=== PATIENT | male | born 1990 | race Caucasian/White ===

== ENCOUNTER 2016-07-21 03:38 | Emergency (ER) | payer OTHER ==
[~2016-07-21] VITALS: Ht 160 cm; Wt 86.0 kg
[2016-07-21 03:42] VITALS: Ht 160 cm; Wt 86.0 kg
--- NOTE | 2016-07-21 04:20 | ERA ---
ER Documentation Chief Complaint Date/Time DATE: 07/21/16 TIME: 04:20 Chief Complaint vomiting/diarrhea since 2300 HPI The patient is 25-year-old male, presenting to the ER because of vomiting and diarrhea that began about 11 PM. He denies any hematemesis or hematochezia. He denies any abdominal pain, fever, chills, neck pain, chest pain, dyspnea, dysuria. He does not smoke, drink or use illegal drug Past medical history: Neurofibromatosis Past surgical history: None ROS All systems reviewed and are negative except as per history of present illness. Medications Home Meds Active Scripts Omeprazole* (Omeprazole*) 40 Mg Capsule.dr, 40 MG PO DAILY, #10 CAP Prov:CAL KUHN MD 07/21/16 Ondansetron (Ondansetron Odt) 4 Mg Tab.rapdis, 4 MG PO Q6H Y for NAUSEA AND/OR VOMITING, #10 TAB Prov:CAL KUHN MD 07/21/16 Reported Medications Calcium Carbonate/Vitamin D2 (Calcium Oys Shell 250 mg Tab) 1 Each Tablet, 1 EACH PO, TAB 07/21/16 Glucosamine Hcl/Chondr Sherman A Na (GLUCOSAMINE-CHONDROITIN CAP) Unknown Strength Capsule, 1 EACH PO, CAP 07/21/16 Allergies Allergies: Coded Allergies: Penicillins (Verified Allergy, Unknown, rash, 07/21/16) Physical Exam Vitals Vital Signs Date Time Temp Pulse Resp B/P Pulse Ox O2 Delivery O2 Flow Rate FiO2 07/21/16 03:42 98.4 109 20 139/70 100 Physical Exam Const: No acute distress. Head: Atraumatic. Eyes: Normal Conjunctiva. ENT: Normal External Ears, Nose and Mouth. Neck: Full range of motion. No meningismus. Resp: Clear to auscultation bilaterally. Cardio: Regular rate and rhythm, no murmurs. Abd: Soft, non distended, normal bowel sounds, non tender. No right lower quadrant, right upper quadrant, epigastric, CVA tenderness Skin: No petechiae or rashes. Back: No midline or flank tenderness. Ext: No cyanosis, or edema. Neur: Awake and alert. No focal deficit Psych: Normal Mood and Affect. Result Diagram: 07/21/1641907/21/16419 Results 24 hrs Laboratory Tests Test 07/21/16 04:20 07/21/16 05:20 White Blood Count 23.310^3/ul Red Blood Count 5.9010^6/ul Hemoglobin 18.2g/dl Hematocrit 51.0% Mean Corpuscular Volume 86.4fl Mean Corpuscular Hemoglobin 30.8pg Mean Corpuscular Hemoglobin Concent 35.7g/dl Red Cell Distribution Width 11.9% Platelet Count 59688^3/UL Mean Platelet Volume 11.0fl Neutrophils % 93.4% Lymphocytes % 2.3% Monocytes % 3.0% Eosinophils % 0.1% Basophils % 0.3% Nucleated Red Blood Cells % 0.0/100WBC Neutrophils # 21.810^3/ul Lymphocytes # 0.510^3/ul Monocytes # 0.710^3/ul Eosinophils # 0.010^3/ul Basophils # 0.110^3/ul Nucleated Red Blood Cells # 0.010^3/ul Sodium Level 143mmol/L Potassium Level 4.2mmol/L Chloride Level 103mmol/L Carbon Dioxide Level 20mmol/L Anion Gap 24 Blood Urea Nitrogen 22mg/dl Creatinine 0.95mg/dl Glucose Level 149mg/dl Calcium Level 10.2mg/dl Total Bilirubin 0.9mg/dl Direct Bilirubin 0.00mg/dl Indirect Bilirubin 0.9mg/dl Aspartate Amino Transf (AST/SGOT) 28IU/L Alanine Aminotransferase (ALT/SGPT) 50IU/L Alkaline Phosphatase 64IU/L Total Protein 9.0g/dl Albumin 5.2g/dl Globulin 3.80g/dl Albumin/Globulin Ratio 1.36 Lipase 21U/L Bedside Urine pH (LAB) 8.5 Bedside Urine Protein (LAB) 1+ Bedside Urine Glucose (UA) Negative Bedside Urine Ketones (LAB) Trace Bedside Urine Blood Negative Bedside Urine Nitrite (LAB) Negative Bedside Urine Leukocyte Esterase (L Negative Current Medications Medications (Trade) Dose Ordered Sig/Margarette Route PRN Reason Start Time Stop Time Status Last Admin Dose Admin Sodium Chloride (NS) 1,000 ml @ 1,000 mls/hr Q1H STAT IV 07/21/16 04:23 07/21/16 05:22 DC 07/21/16 04:32 Ondansetron HCl (Zofran Inj) 4 mg ONCE STAT IV 07/21/16 04:23 07/21/16 04:25 DC 07/21/16 04:32 Pantoprazole (Protonix Iv) 40 mg ONCE ONCE IV 07/21/16 04:30 07/21/16 04:31 DC 07/21/16 04:32 Procedures/[facility] MEDICAL MAKING DECISION: The patient is a 25-year-old male, presenting with vomiting and diarrhea, most likely gastroenteritis. He was treated with 1 L normal saline for clinical dehydration, Zofran formula IV for nausea, Protonix 40 mg iv with good response. Multiple repeat abdominal exams were unremarkable. I do not suspect appendicitis or cholecystitis or colitis because he is a symptomatic. The leukocytosis is most likely due to acute margination The differential diagnoses considered include but are not limited to cholelithiasis, cholecystitis, cystitis, pancreatitis, hepatitis, gastritis, peptic ulcer disease, gastric ulcer, appendicitis, diverticulitis, cholangitis, choledocholithiasis, partial small bowel obstruction. Departure Diagnosis: Primary Impression: Vomiting and diarrhea Additional Impression: Dehydration Condition: Good Comments He was discharged with Zofran and Prilosec and advised to return in 8 hours for reevaluation, sooner if any concern The patient's blood pressure was elevated (>120/80) but appears stable without evidence of hypertension emergency or urgency. The patient was counseled about the risks of hypertension and urged to pursue outpatient monitoring and therapy within a week with their primary care physician. CAL KUHN MD July 21, 2016 04:20
[2016-07-21] MEDS ORDERED: SOD CHLORIDE 0.9% 1,000 ML IV STA (04:23)
[2016-07-21] MEDS ORDERED: ONDANSETRON 4 MG INJ IV STA (04:23)
[2016-07-21] MEDS ORDERED: PANTOPRAZOLE 40 MG INJ IV ONE (04:30)
[2016-07-21] MEDS ORDERED: GLUC1CAP6 PO (04:37)
[2016-07-21] MEDS ORDERED: CALC-5 PO (04:37)
[2016-07-21 04:59] LABS: ADD SCAN DIFF NO
[2016-07-21 05:01] LABS: ABNORMAL IP MESSAGE 1; BASOPHIL # 0.1 10^3/ul (0.0-0.1); BASOPHILS % 0.3 % (0.0-2.0); EOSINOPHILS % 0.1 % (0.0-7.0); HEMOGLOBIN 18.2 g/dl (14.0-18.0); LYMPHOCYTES # 0.5 10^3/ul (0.8-2.9); LYMPHOCYTES % 2.3 % (15.0-51.0); MEAN CORPUSCULAR HEMOGLOBIN 30.8 pg (29.0-33.0); MEAN CORPUSCULAR HGB CONC 35.7 g/dl (32.0-37.0); MEAN CORPUSCULAR VOLUME 86.4 fl (82.0-101.0); MONOCYTE # 0.7 10^3/ul (0.3-0.9); NEUTROPHIL # 21.8 10^3/ul (1.6-7.5); NEUTROPHILS % 93.4 % (39.0-77.0); PLATELET COUNT 279 10^3/UL (140-415); RED CELL DISTRIBUTION WIDTH 11.9 % (11.5-14.5); WHITE BLOOD COUNT 23.3 10^3/ul (4.8-10.8)
[2016-07-21 05:19] LABS: URINE BLOOD (Dip) POC Negative (NEGATIVE)
[2016-07-21 05:28] LABS: ALBUMIN 5.2 g/dl (3.3-4.9)
[2016-07-21 05:29] LABS: POTASSIUM 4.2 mmol/L (3.5-5.1)
[2016-07-21 05:31] LABS: ALBUMIN/GLOBULIN RATIO 1.36; BILIRUBIN,INDIRECT 0.9 mg/dl (0-1.1); BILIRUBIN,TOTAL 0.9 mg/dl (0.2-1.3); CALCIUM 10.2 mg/dl (8.4-10.2); CREATININE 0.95 mg/dl (0.61-1.24)
[2016-07-21] MEDS ORDERED: OMEP40CA6 PO (05:40)
[2016-07-21] MEDS ORDERED: ONDA4TAB14 PO (05:40)
[2016-07-21 05:59] VITALS: BP 127/72; PULSE 84; RESP 18; TEMP 98.6
== END 2016-07-21 06:01 | disposition home or self-care (01) ==
LOC: E/R 03:38
DX: R11.10 Vomiting, unspecified (principal); R19.7 Diarrhea, unspecified; E86.0 Dehydration
CPT/HCPCS: 36415; 80053; 81003; 83690; 85025; 96374; 96375; 99284; C9113; J2405; J7030